=== PATIENT | male | born 1955 | race Caucasian/White ===

== ENCOUNTER 2024-01-13 11:35 | Emergency (ER) | payer MEDICARE, OTHER, SELFPAY ==
[2024-01-13 11:40] VITALS: BP 112/71
[2024-01-13] MEDS: MOTRIN 600 MG PO (13:49)
[2024-01-13] MEDS: VALIUM 5 MG PO (13:50)
--- NOTE | 2024-01-13 14:47 | ED.MUSCINJ ---
HPI-Injury
General
Chief Complaint: Fall
Source: patient
Exam Limitations: none
Time Seen by Provider: 01/13/24 12:53
Nursing documentation reviewed up to this point in time: agreed with
Travel History
Have you had any contact with someone who has COVID-19?: No
Do you have any symptoms of coronavirus? Fever > 100 degrees, chills, cough, shortness of breath, sore throat, loss of taste or smell, muscle aches, or headache?: No
History of Present Illness-Injury
Initial Injury comments:
68-year-old male with no significant past medical history states at 7:30 AM he was walking his dog slipped on ice, his feet went out from under him and he landed flat on his back striking the back of his head on the cement. He states I 'saw stars,'
but there was no loss of consciousness. It knocked the wind out of him. He experienced mid back pain at the time and had to lay there, eventually was able to roll over on the side and got up on all fours where he stayed for a while due to his back
pain. He eventually stood up, felt dizzy and had to hold onto the light post for a few seconds. He was able to ambulate about 50 yards back to his house, still feeling lightheaded, he leaned over on the head of his car and stayed there for a
minute or 2 then was able to get up and ambulate into the house.
Patient denies headache, change in vision, nausea or vomiting. He would not be here for his head injury alone. He does not feel it was significant.
He is mainly here because he has 8/10 mid back pain after his fall. He feels his back and ribs are going into spasm. He took ibuprofen 400 mg at 9 AM and placed ice on his back and the back of his head. His lightheadedness is better.
Denies numbness, tingling or weakness in extremities.
Past History
Past History
ED Past Medical History: None
ED Past Surgical History: None
Social History
Tobacco: Non-smoker
Alcohol: Occasional
Personal:
Living: with family
Employment: Employed
Review of Systems
Review of Systems
Allergies reviewed?: Yes
All Other Systems: ROS reviewed and negative except as documented in HPI and ROS
Constitutional: Denies fever
Respiratory: Denies trouble breathing
Cardiac: Denies chest pain or syncope
ABD/GI: Denies abdominal pain, nausea or vomiting
: Denies dysuria
Musculoskeletal: Denies edema, neck pain or back pain
Neurological: Reports weakness and other (Unable to gaze to the right. Speech is slurred, left-sided facial droop); Denies dizzy, headache or numbness
Phy Exam
General Physical Exam
General Presentation: well appearing and mild distress (due to mid back pain and muscle spasms)
General age: appears stated age
General Skin: dry and cool
General Habitus: normal
General Mental: alert
General Hydration: appears well hydrated
Eye Exam
Eye Exam: PERRL, cornea clear and conjunctiva normal
Cardiovascular Exam
Cardiovascular Exam: regular rate/rhythm
Heart Sounds: normal
Pulmonary Exam
Pulmonary Exam: lungs clear and chest non tender
Gastrointestinal Exam
Gastrointestinal Exam: non tender and soft
Neurological Exam
Neurological Exam: alert, oriented x3, CN II-XII intact, no motor deficits (strength equal throughout) and speech normal
Injury Course
Orders/Labs/Results
Orders:
Orders
01/13/24 13:39
Diazepam [Valium] 5 mg PO NOW STA
Ibuprofen [Motrin] 600 mg PO NOW STA
01/13/24 13:40
Thoracic Spine 3 Views CR [CR Thoracic Spine 3 Views] Urgent
Comment:
Reason For Exam: pain after fall
01/13/24 15:41
CT Head W/o Iv Contrast Urgent
Comment:
Reason For Exam: lightheaded after head injury
MDM/Problems Addressed
Differential Diagnosis Includes:
T spine fracture, back strain, contusion
Concussion, scalp contusion
MDM/Problems Addressed:
68-year-old male with no significant past medical history states at 7:30 AM he was walking his dog slipped on ice, his feet went out from under him and he landed flat on his back striking the back of his head on the cement. He states I 'saw stars,'
but there was no loss of consciousness. It knocked the wind out of him. He experienced mid back pain at the time and had to lay there, eventually was able to roll over on the side and got up on all fours where he stayed for a while due to his back
pain. He eventually stood up, felt dizzy and had to hold onto the light post for a few seconds. He was able to ambulate about 50 yards back to his house, still feeling lightheaded, he leaned over on the head of his car and stayed there for a
minute or 2 then was able to get up and ambulate into the house.
Patient denies headache, change in vision, nausea or vomiting. He would not be here for his head injury alone. He does not feel it was significant.
He is mainly here because he has 8/10 mid back pain after his fall. He feels his back and ribs are going into spasm. He took ibuprofen 400 mg at 9 AM and placed ice on his back and the back of his head. His lightheadedness is better.
Denies numbness, tingling or weakness in extremities.
Loss of conscious, no focal neurological deficits, not anticoagulated, no indication for head CT but patient's son and daughter are nurses and they are in contact with patient's and are insistent on head CT.
Pt OOB and ambulating with steady gait. Movement of spine intact to about 50% Rotation and forward flexion.
T spine xray shows no fracture or other acute abnormality.
No sign of concussion
Head CT neg. Reviewed incidental finding with pt and he will f/u with PCP for MRI
Rx for muscle relaxant sent to his pharmacy
*Critical Care Note
Total Time (30-74mins, 75-104mins- exclusive of procedures): Not Applicable
ED Attending Note
-
Portions of this chart may have been created with voice recognition software.� Occasional wrong word or��sound alike� substitutions may have occurred due to the inherent limitations of voice recognition software.
Discharge Plan
Departure
Patient Disposition: Home (Routine Discharge)
Date of Disposition: 01/13/24
Time of Disposition: 17:16
Patient with high blood pressure during this ER visit?: No
Condition: Good
Discharge Problem:
Head injury, acute, without loss of consciousness, Fall due to ice or snow, Acute bilateral thoracic back pain
Instructions: Back Muscle Strain (DC), Head Injury in Adults (DC), Blunt Chest Trauma (DC)
Prescriptions:
New
cyclobenzaprine 10 mg tablet
10 mg PO TID PRN (Reason: muscle spasm) Qty: 30 0RF
Referrals:
Your, Doctor [Other] - As needed
NONE,* [Family Provider] -
Activity Restrictions/Additional Instructions:
As we discussed, I sent a prescription to your pharmacy for a muscle relaxant Flexeril (cyclobenzaprine) 10 mg to take up to 3 times a day as needed for muscle spasms, back tightness
This medication can make you sleepy and slow the reflexes so do not drive or operate any machinery within 8 hours of taking it.
Your head CT shows no acute abnormality. there is a tiny focus of subtle irregularity which is most likely nothing worrisome but to be sure it is properly evaluated, you should have an MRI. Please contact your doctor to arrange MRI.
See your doctor or return here immediately for vomiting more than once in 1 hour, confusion, or headache that gets worse and worse despite Tylenol or what you normally take for pain.
Interventions
Interventions:
*Risk Screen - Suicide Last Done: 01/13/24 11:43
*General Assessment Last Done: 01/13/24 11:43
*Neglect/Abuse Screening Last Done: 01/13/24 11:43
*Nursing Disposition Last Done: 01/13/24 18:07
ED-Musculoskeletal Assessment Last Done: 01/13/24 13:10
ED- Neurological Assessment Last Done: 01/13/24 13:10
ED-Skin Assessment Last Done: 01/13/24 13:10
Discharge Date and Time
Discharge Date/Time: 01/13/24 18:09
[2024-01-13 17:30] VITALS: BP 139/85
== END 2024-01-13 18:09 | disposition home or self-care (01) ==
LOC: EMR 11:35
PROVIDERS: EMERGENCY PHYSICIAN Emergency Medicine
DX: S09.90XA Unspecified injury of head, initial encounter (principal); M54.6 Pain in thoracic spine; R42 Dizziness and giddiness; R29.810 Facial weakness; M62.830 Muscle spasm of back; W00.0XXA Fall on same level due to ice and snow, initial encounter; Y93.K1 Activity, walking an animal
CPT/HCPCS: 99284; 70450; 72072

== ENCOUNTER 2024-11-01 05:58 | Inpatient (IN) | payer MEDICARE, OTHER, SELFPAY ==
[2024-11-01] VITALS (17 sets, daily range): BP systolic 109–141; BP diastolic 75–85; BMI 27.5
[2024-11-01 03:46] LABS: Glucose - Point of Care 132 mg/dl (70-99)
[2024-11-01] MEDS: NITROSTAT (SUBLINGUAL) 0.4 MG SL ×3 (03:55→04:05)
[2024-11-01] MEDS: LOW STRENGTH ASPIRIN 324 MG PO (03:57)
[2024-11-01] MEDS: NSS 1000 IV ×2 (03:57→14:30)
[2024-11-01] MEDS: HEPARIN 4000 UNITS IV (03:59)
[2024-11-01 04:10] LABS: % Basophils 0.9 % (0-2); % Eosinophils 4.6 % (0-6); % Immature Granulocytes 0.3 % (0-0.5); % Lymphocytes 44.8 % (20.5-51.1); % Monocytes 9.9 % (1.7-9.3); % Neutrophils 39.5 % (42.2-75.2); Absolute Basophils 0.1 10^3/uL (0-0.2); Absolute Eosinophils 0.5 10^3/uL (0-0.7); Absolute Lymphocytes 4.8 10^3/uL (1.2-3.4); Absolute Monocytes 1.1 10^3/uL (0.1-0.6); Absolute Neutrophils 4.2 10^3/uL (1.4-6.5); Hematocrit 45.5 % (39.0-52.0); Hemoglobin 15.3 g/dL (13.0-18.0); Mean Corp Hgb Conc. 33.6 g/dL (33.0-37.0); Mean Corpuscular Hgb 31.2 pg (27.0-31.0); Mean Corpuscular Volume 92.7 fL (80.0-94.0); Mean Platelet Volume 8.6 fL (7.4-10.4); Nucleated Red Blood Cells % 0 % (-); Platelet Count 262 10^3/uL (130-400); Red Blood Cell Count 4.91 10^6/uL (4.70-6.10); Red Cell Dist. Width 12.8 % (11.5-14.5); White Blood Cell Count 10.6 10^3/uL (4.8-10.8)
[2024-11-01] MEDS: NITROGLYCERIN PREMIX 250 IV (04:20)
[2024-11-01 04:21] LABS: INR 0.91; PT 12.6 Sec (11.4-14.6)
[2024-11-01 04:22] LABS: APTT 27.6 Sec (23.4-35.0)
--- NOTE | 2024-11-01 04:24 | EDRN ---
Nitro infusion started and chest pain is currently rated at a 2/10
[2024-11-01 04:33] LABS: ALT (SGPT) 24 U/L (0-50); AST (SGOT) 28 U/L (17-59); Alkaline Phosphatase 99 U/L (38-126); Blood Urea Nitrogen 13 mg/dl (9-20); Carbon Dioxide 25 mmol/L (22-30); Chloride 106 mmol/L (98-107); Glucose 156 mg/dl (70-99); Potassium 3.6 mmol/L (3.5-5.1); Sodium 142 mmol/L (135-145); Total Bilirubin 0.5 mg/dl (0.2-1.3); Total Protein 6.6 g/dl (6.3-8.2); eGFR > 60.00
[2024-11-01 04:41] LABS: Troponin I 0.125 ng/ml
--- NOTE | 2024-11-01 04:45 | EDRN ---
Dr. Mayes bedside. Patient states that he is chest pain free at this time. Patient denies any pressure feeling in his chest. Patient remains at 10mcg/min for nitro infusion.
--- NOTE | 2024-11-01 04:50 | ED.GENMED ---
History of Present Illness
General
Chief Complaint: Chest Pain
Source: patient and spouse
Exam Limitations: none
Time Seen by Provider: 11/01/24 03:54
Nursing documentation reviewed up to this point in time: agreed with
History of Present Illness
History of Present Illness:
This is a 69-year-old gentleman with no significant past medical history, takes no medicines on a daily basis who presents with acute substernal chest pain that radiates to his anterior neck, jaw, aching in nature that began just prior to arrival.
Chest pain accompanied with diaphoresis. He denies shortness of breath, no dizziness nor lightheadedness, denies back pain. No history of similar episodes in the past.
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
He himself has no significant past medical history but father with history of CAD having an MO at 70.
Past History
Past History
ED Past Medical History: Other (Kidney stones)
ED Past Surgical History: None
Social History
Tobacco: Non-smoker
Alcohol: Occasional
Personal:
Living: with family
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
Family History
Family History: CAD (Father having an MO at age 70)
Phy Exam
Physical Exam
Physical Exam:
GENERAL: 69-year-old gentleman appears his stated age, awake and alert, appears in moderate distress, cooperative.
EYE: anicteric
NECK: Supple, nontender, no meningismus, no significant adenopathy. No JVD.
ENT: oral mucosa is moist. No rhinorrhea.
CARDIAC: Regular rate and rhythm. no murmur.
LUNGS: Clear breath sounds bilaterally, no acute respiratory distress, no wheezes/rales/rhonchi
ABDOMEN: Soft, nondistended, without focal tenderness, normoactive BS.
NEUROLOGICAL: Alert and oriented x3, no focal neuro deficits.
SKIN: Warm and dry, normal color, skin intact. No rash.
MUSCULOSKELETAL: No C/C/E. peripheral pulses are full and equal b/l. No palpable tenderness.
PSYCH: Normal and appropriate interaction.
Scores
Heart Score for Chest Pain Patients
STEMI patient?: No
History: Highly Suspicious
ECG: Nonspecific Repolarization
Age: >/= 65 years
Risk Factors: 1 or 2 Risk Factors
Troponin: >/= 3 x Normal Limit
Heart Score for Chest Pain Patients: 8
Heart Score Risk: 72.7 % MACE over next 6 weeks
Course
Orders/Labs/Results
Orders:
Orders
11/01/24 03:43
Electrocardiogram (*1) Urgent
Reason for Study: Chest Pain
11/01/24 03:44
EKG- Treatment ONCE
11/01/24 03:51
CMP [Comprehensive Metabolic Panel] Urgent
Complete Blood Count/With Diff Urgent
Troponin I Urgent
11/01/24 03:53
PT/INR [Prothrombin Time] Urgent
PTT Urgent
11/01/24 03:55
0.9% Sodium Chloride 1000 ml [Nss] 1,000 ml IV BOLUS
Aspirin Chewable [Low Strength Aspirin] 324 mg PO NOW STA
Heparin 4,000 units IV NOW STA
Nitroglycerin Sublingual [Nitrostat (Sublingual)] 0.4 mg SL NOW STA
CR Chest Portable - 1 View Urgent
Comment:
Reason For Exam: cp
Reason Study Needs to be Portable: Patient Unstable
11/01/24 04:03
ECG [Electrocardiogram (*1)] Urgent
Reason for Study: Chest Pain
EKG- Treatment ONCE
11/01/24 04:15
Nitroglycerin 100 mg/250 ml [Nitroglycerin Premix] 100 mg in 250 ml .ROUTE .STK-MED
11/01/24 04:16
Nitroglycerin 100 mg/250 ml [Nitroglycerin Premix] 100 mg in 250 ml IV NOW
Initial dose in mcg/min, then titrate:: 5
Titrate to keep:: SBP < 160 mmHg
Titrate by mcg/min:: 5 mcg/min, may increase by 10 mcg/min if dose > 20 mcg/min
Frequency of titrations (minutes):: every 3-5 minutes
Maximum dose in mcg/min:: 200
Begin to taper infusion when:: Remained at goal for 2hrs
Taper by mcg/min:: 5 mcg/min
Frequency of taper (minutes) if patient maintains goal:: 30
Taper to off?: Yes
If infusion off & no longer maintaining goal:: Contact Provider
11/01/24 04:29
Nitroglycerin 100 mg/250 ml [Nitroglycerin Premix] 100 mg in 250 ml IV NOW
Initial dose in mcg/min, then titrate:: 5
Titrate to keep:: Chest Pain Free
Titrate by mcg/min:: 5 mcg/min, may increase by 10 mcg/min if dose > 20 mcg/min
Frequency of titrations (minutes):: every 3-5 minutes
Maximum dose in mcg/min:: 200
Begin to taper infusion when:: Remained at goal for 2hrs
Taper by mcg/min:: 5 mcg/min
Frequency of taper (minutes) if patient maintains goal:: 30
Taper to off?: Yes
If infusion off & no longer maintaining goal:: Contact Provider
11/01/24 05:[address] Non Medication Order As Directed
Physician Order: PTT 6 hours after initial start of Heparin infusion
Above order entered?: Yes
11/01/24 05:44
Admit/Transfer Patient As Directed
Co-Sign Provider:
Level of Care: Inpatient admission
Assign to:: IVU
Physician / Group: [facility]
Diagnosis: NSTEMI
Reason for Hospitalization: NSTEMI
Expected length of stay greater than two midnights?: Yes
ELOS- Estimated Length of Stay in days: 3
I certify the patient meets the requirements for IP care: Yes
Code Status As Directed
Resuscitation Status: Full Code
PRN Pain Medication Management As Directed
May give lesser potent ordered pain med per pt: Yes
preference::
Protocol:: Medication orders for pain may be administered in a
manner that supports deferring to patient preference
when the pt is:
- Requesting an ordered lesser potent pain medication.
Least to most potent pain medications are defined
as: acetaminophen < NSAID < tramadol < opioids
(morphine, oxycodone, hydromorphone).
- Requesting a lesser dose of the same medication IF
ORDERED.
- Requesting a less intrusive route of administration
if both routes are prescribed by the provider (PO <
IV).
11/01/24 05:45
Heparin 33707 Units/250 ml 25,000 units in 250 ml IV PER PROTOCOL
Weight to be used for heparin protocol in kilograms (kg):: 89.4
Protocol:: Cardiac Tx/Acute Coronary
PTT Goal Range to be used:: PTT 73 to 111 seconds
Order type:: Initial
INITIAL Infusion Dose (UNITS/KG/hr) & then follow protocol:: 15 units/kg/hr
Infusion Dose in UNITS/hr & then follow protocol (UNITS/hr):: 1,350
INFUSION RATE in mL/hr & then follow protocol (mL/hr):: 13.5
PTT less than or equal to 64 seconds:: Increase rate by 200 units/hr (+ 2 mL/hr)
PTT 64.1 to 72.9 seconds:: Increase rate by 100 units/hr (+ 1 mL/hr)
PTT 73 to 111 seconds:: Target Range. No change in rate.
PTT 111.1 to 130.9 seconds:: Decrease rate by 100 units/hr (- 1 mL/hr)
PTT 131 to 199.9 seconds:: HOLD for 1 hr. Then decrease rate by 200 units/hr (- 2 mL/hr)
PTT greater than or equal to 200 seconds:: HOLD for 2 hrs & Notify Provider. Then decrease by 200 units/hr (-
2 mL/hr)
Lab follow-up:: Each change, PTT q6h until 2 consecutive are therapeutic. Then PTT
daily.
11/01/24 Breakfast
NPO
Allow oral meds: Yes
Allow clear liquids: Sips of Clears
11/01/24 06:52
Troponin I Q6H
Acetaminophen [Tylenol] 650 mg PO Q4HPRN PRN
Morphine Sulfate 2 mg IV Q4HPRN PRN
Nitroglycerin 100 mg/250 ml [Nitroglycerin Premix] 100 mg in 250 ml IV PER PROTOCOL
Currently infusing. Continue current dose and titrate:: Yes
Titrate to keep:: Chest Pain Free
Titrate by mcg/min:: 5 mcg/min, may increase by 10 mcg/min if dose > 20 mcg/min
Frequency of titrations (minutes):: every 3-5 minutes
Maximum dose in mcg/min:: 200
Begin to taper infusion when:: Remained at goal for 2hrs
Taper by mcg/min:: 5 mcg/min
Frequency of taper (minutes) if patient maintains goal:: 30
Taper to off?: Yes
If infusion off & no longer maintaining goal:: Contact Provider
Nitroglycerin Sublingual [Nitrostat (Sublingual)] 0.4 mg SL [id number] PRN
Ondansetron Injectable [Zofran] 4 mg IV Q6HPRN PRN
11/01/24 06:52
CARDIOLOGY CONSULT Routine
Consulting Provider: Lamberto Capone
Was physician already notified: Yes
Reason for consult: NSTEMI
Glycohemoglobin (HgbA1c) Routine
Heparin Protocol- PTT Orders As Directed
PTT per Heparin protocol: -Obtain CBC and baseline PTT - if not already collected.
-Obtain PTT 6 hours from start of infusion. Then, every 6 hours until 2 consecutive
PTT's are therapeutic. Then, PTT Daily.
-With each rate change, obtain PTT every 6 hours until 2 consecutive PTT's are
therapeutic. Then, PTT Daily.
Activity As Directed
Activity Level: Bedrest
Bladder Scan As Directed
Follow Bladder Retention/Intermittent Cath Algorithm?: Yes
PRN if no void in __ hours: 6
Frequency: Per Retention Algorithm
If Bladder Scan Result >: 400
then:: Straight cath
EKG with chest pain [ECG as needed] As Directed
ECG as needed for:: Chest Pain
I/O [Intake/ Output] As Directed
Frequency: Per unit guidelines
Notify MD As Directed
Notify physician if: PTT is greater than or equal to 200.
Straight Cath As Directed
Frequency: Per Retention Algorithm
Additional Instructions: straight cath as needed per acute urinary retention algorithm for 24 hrs
Additional Instructions: for bladder scan greater than 400 mL
Vital Signs As Directed
Frequency: Per unit guidelines
Oxygen Therapy [O2 Therapy] [RESP] Routine
Titrate/Wean O2 to maintain O2 sat greater than (%): 94
11/01/24 08:00
Pantoprazole [Protonix IV] 40 mg IV DAILY
11/01/24 11:45
PTT Routine
11/01/24 12:52
Troponin I Q6H
11/01/24 18:52
Troponin I Q6H
11/02/24 06:00
EKG [Electrocardiogram (*1)] IN AM
Reason for Study: Chest Pain
Basic Metabolic Panel IN AM
Cardiovascular Evaluation IN AM
11/02/24 08:00
Aspirin Chewable [Low Strength Aspirin] 81 mg PO DAILY
11/03/24 06:00
Complete Blood Count/No Diff Q2D
Comment: notify provider: Platelet count < 130,000 or decrease by 50% from baseline
11/05/24 06:00
Complete Blood Count/No Diff Q2D
Comment: notify provider: Platelet count < 130,000 or decrease by 50% from baseline
11/07/24 06:00
Complete Blood Count/No Diff Q2D
Comment: notify provider: Platelet count < 130,000 or decrease by 50% from baseline
11/09/24 06:00
Complete Blood Count/No Diff Q2D
Comment: notify provider: Platelet count < 130,000 or decrease by 50% from baseline
11/11/24 06:00
Complete Blood Count/No Diff Q2D
Comment: notify provider: Platelet count < 130,000 or decrease by 50% from baseline
11/13/24 06:00
Complete Blood Count/No Diff Q2D
Comment: notify provider: Platelet count < 130,000 or decrease by 50% from baseline
11/15/24 06:00
Complete Blood Count/No Diff Q2D
Comment: notify provider: Platelet count < 130,000 or decrease by 50% from baseline
11/17/24 06:00
Complete Blood Count/No Diff Q2D
Comment: notify provider: Platelet count < 130,000 or decrease by 50% from baseline
Abnormal Lab Results
11/01/24 11/01/24
03:45 03:51
MCH 31.2 H pg
(27.0-31.0)
Absolute Lymphs (auto) 4.8 H 10^3/uL
(1.2-3.4)
Absolute Monos (auto) 1.1 H 10^3/uL
(0.1-0.6)
Neutrophils % 39.5 L %
(42.2-75.2)
Monocytes % 9.9 H %
(1.7-9.3)
Glucose 156 H mg/dl
(70-99)
Troponin I 0.125 H* ng/ml
POC Glucose 132 H mg/dl
(70-99)
11/01/24 03:51
11/01/24 03:51
Vital Signs
Initial and Last Documented VS:
Initial Vital Signs
Temp Pulse Resp BP Pulse Ox
97.8 F 56 18 141/85 99
11/01/24 03:44 11/01/24 03:44 11/01/24 03:44 11/01/24 03:44 11/01/24 03:44
Last Documented Vital Signs
Temp Pulse Resp BP Pulse Ox
97.8 F 56 18 118/69 99
11/01/24 03:44 11/01/24 03:44 11/01/24 03:44 11/01/24 04:10 11/01/24 03:44
MDM/Problems Addressed
Differential Diagnosis Includes:
Significant concern for ACS/non-STEMI.
Initial EKG with very subtle changes but not definitive for STEMI.
Will give 325 mg chewable aspirin, sublingual nitroglycerin, heparin bolus of 4000 units.
Serial EKGs as needed and clinical changes.
Chronic conditions affecting care: Other (Family history of CAD)
*Radiology
Radiology exam reviewed: preliminary read by ED provider (Chest x-ray is unremarkable.)
*Pulse Oximetry
Patient hypoxic: no
*EKG
Interpreted by ED Provider?: Yes
Interpretation: abnormal
Comparison EKG: no comparison EKG present
Rate: normal
Rhythm: sinus
Humphrey: normal axis
Interval: normal interval
QRS Pattern: normal QRS
Ischemia: non-specific ST changes
*Executive Creative Director Interpretation
Rate: normal
Interpretation: normal
Rhythm: sinus
*Critical Care Note
Total Time (30-74mins, 75-104mins- exclusive of procedures): 60
comment:
Critical care statement: A total of 60 minutes of critical care time was provided for this patient. This includes management of unstable vital signs, evaluation of the patient at bedside, reviewing the patient's pertinent medical records, discussion
with consultants, review of old EKGs and review of pertinent medical records. This time with separate from time utilized to perform the aforementioned documented procedures
Update Note
Update Note:
Patient is chest pain-free after 3 sublingual nitroglycerin, chewable aspirin, heparin bolus and now with heparin drip at 10 mcgs.
Repeat EKG shows improvement in subtle changes.
Initial troponin 0.125.
Case discussed with cardiology, agrees with current treatment. Will add heparin drip, admit to hospitalist service with consult to cardiology. Recommend n.p.o. status for cath in the a.m.
ED Attending Note
-
Portions of this chart may have been created with voice recognition software.� Occasional wrong word or��sound alike� substitutions may have occurred due to the inherent limitations of voice recognition software.
Discharge Plan
Departure
Patient Disposition: Admit
Date of Disposition: 11/01/24
Time of Disposition: 04:58
Admit to: IVU
Admit to doctor: [facility]
Presentation/result/management discussed w/ accepting MD/DO: Hospitalist
Condition: Serious
Discharge Problem:
ACS (acute coronary syndrome), Acute non-ST elevation myocardial infarction (NSTEMI)
Interventions
Interventions:
*Risk Screen - Suicide Last Done: 11/01/24 03:44
*General Assessment Last Done: 11/01/24 03:56
*Neglect/Abuse Screening Last Done: 11/01/24 03:44
ED- Fall Risk Assessment Last Done: 11/01/24 04:05
ED- Cardiac Assessment Last Done: 11/01/24 04:05
[2024-11-01] MEDS: HEPARIN 25000 UNITS/250 ML IV (05:42)
--- NOTE | 2024-11-01 05:52 | HPS.HSE ---
Family Physician
-
Family Physician: * NONE
Chief Complaint
-
Chest Pain
History of Present Illness
Patient is a 69y M with no significant PMH who presents to ED complaining of chest pain that woke him from sleep. Patient states that he felt well last PM. He woke in the middle of the night with chest tightness, SOB and diaphoresis. He felt
nauseated and had some dry haves at home. Patient presented to the ED for further evaluation and treatment. He denies any prior history of similar symptoms. In the ED, patient is somewhat anxious. He complains of mild nausea. He notes that his
chest discomfort is much improved from prior - though he continues to note a mild 'burning' sensation in the chest.
Medical History
Past Medical History
Past Medical History: Reports Other
Additional Past Medical History:
Nephrolithiasis
Past Surgical History: Reports Other
Additional Past Surgical History:
Lithotripsy
Social History
Tobacco: Non-smoker
Alcohol: Occasional
Drug: None
Family History
Family History: Other (Father: CO at age 75. Sister: Cancer)
Allergies / Home Medications
Allergies reflects when Allergies were last updated in [facility].
Home Medications with original date entered in [facility]
Allergy/Medication List:
Allergies
Allergy/AdvReac Type Severity Reaction Status Date / Time
NKA - No Known Allergies Allergy Unknown Unknown Uncoded 11/01/24 03:52
Home Medications
No Meds [No Current Medications] 11/01/24
Review of Systems
-
History Source: Patient
A 12 point ROS was completed and negative except as noted: Yes
Constitutional: Denies Fever or Chills
Respiratory: Reports Trouble Breathing; Denies Cough
Cardiac: Reports Chest Pain and Diaphoresis; Denies Syncope
Abdomen/GI: Reports Nausea and Vomiting; Denies Abdominal Pain or Diarrhea
: Denies Dysuria or Frequency
Musculoskeletal: Denies Joint Pain or Edema
Neurological: Denies Dizzy or Headache
Psych: Reports Anxiety; Denies Depression
Physical Exam
Vital Signs
Vital Signs
Temp Pulse Resp BP Pulse Ox
97.8 F 56 18 118/69 99
11/01/24 03:44 11/01/24 03:44 11/01/24 03:44 11/01/24 04:10 11/01/24 03:44
Physical Exam
General: Other (69y M in no acute distress.)
HEENT: Moist mucous membranes and PERRLA
Respiratory: Clear; No Wheezes, Rales or Rhonchi
Cardiac: S1/S2 and Regular Rhythm; No Murmur
GI: Soft, Non Tender, Non Distended and Normal Bowel Sounds
Musculoskeletal: No Clubbing, No Cyanosis and No Edema
Neuro: AO x 3
Psych: Anxious
Laboratory Results
-
11/01/24 03:51
11/01/24 03:51
Laboratory Results
PT 12.6 Sec (11.4-14.6) 11/01/24 03:53
INR 0.91 11/01/24 03:53
APTT 27.6 Sec (23.4-35.0) 11/01/24 03:53
Total Bilirubin 0.5 mg/dl (0.2-1.3) 11/01/24 03:51
AST 28 U/L (17-59) 11/01/24 03:51
ALT 24 U/L (0-50) 11/01/24 03:51
Alkaline Phosphatase 99 U/L (38-126) 11/01/24 03:51
Troponin I 0.125 ng/ml H* 11/01/24 03:51
Impression/Plan
-
A/P: Patient is a 69y M with no significant PMH who presents to ED complaining of chest pain that woke him from sleep.
NSTEMI
- Admit to IVU.
- IV heparin, NTG, ASA.
- Follow for any new / worsening symptoms.
- Follow serial troponin.
- Cardiology evaluation and probable ischemic evaluation later today.
- Additional recommendations per Cardiology.
No other active or chronic medical issues.
DVT Prophylaxis: On IV heparin
Code Status: Full
--- NOTE | 2024-11-01 07:37 | CON.CAR ---
Addendum entered and electronically signed by Elvira Sena MD 11/01/24 16:41:
I saw and examined the patient.
The Furniture Sales Consultant's note was reviewed and I agree with the note.
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
around 3 AM this morning associated with cold sweats who presented to the emergency room with concern for possible NSTEMI. Initial troponin I was 0.125 which went up to 0.358 on second check. Despite IV heparin drip and low-dose nitroglycerin
after 3 sublingual nitroglycerin in the ED he had improvement in symptoms with persistent 1-2 out of 10 chest discomfort.
Vital signs and lab work reviewed. On exam patient is well-appearing, no acute distress, regular rate, normal S1 and S2, no murmurs, rubs or gallops, lungs are clear to auscultation bilaterally, positive JVD, abdomen is soft, nontender,
nondistended with active bowel sounds, 2+ radial pulse, warm extremities without significant edema
EKG with no acute ischemic changes
Recommendations:
1. Given ongoing chest discomfort, we decided to urgently take him to the heart catheterization lab after discussing risk and benefits of the procedure in significant detail.
2. Further recommendations outlined in Vice President Of News report.
Elvira Sena MD, [facility], [facility]
Original Note:
Consultation
Consultation Request
Date/Time Consultation Performed: 11/01/24
Requesting Provider: Dr. Mayes
Performing Provider: Fatimah Cain PA-C for Dr. Hassan
Reason for Consultation: CP
Medical History
-
Chief Complaint: CP
History of Present Illness:
Patient is a 69 yo M without significant PMH who presents to [facility] with complaints of chest discomfort. 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 He reports then he woke up with significant diaphoresis and
chest tightness and pressure up into his neck. He had never had pain like that before. When he walked out to the car with his he had some dry heaving as well. He reports the pain was relatively persistent. He was given aspirin, sublingual
nitro x 3, and started on IV heparin and IV nitro drips with significant improvement in pressure, although reports it remains mild at this time. He also reports mild headache. EKG sinus bradycardia with first-degree AV block, incomplete right
bundle branch block, and septal ST depression noted, resolved on repeat EKG. Initial troponin 0.125. Cardiology consulted for evaluation. Denies prior cardiac issues. Does report family history of CAD in father in 70s.
PMH:
History of remote kidney stone
Family history of CAD and A-fib
Past Medical History
Past Medical History: None
Social History
Tobacco: Non-Smoker
Alcohol: Occasional
Personal:
Living: With Family
Employment: Employed
Family History
Family History: CAD (Father in 70s)
Allergies / Home Medications
Allergy/AdvReac Type Severity Reaction Status Date / Time
NKA - No Known Allergies Allergy Unknown Unknown Uncoded 11/01/24 03:52
�Medication �Instructions �Recorded �Confirmed �Type
No Meds [No Current Medications] 11/01/24 11/01/24 History
Review of Systems
-
History Source: Patient
All other systems: Negative unless noted
Physical Exam
Vital Signs
Temp Pulse Resp BP Pulse Ox
97.8 F 56 18 118/69 99
11/01/24 03:44 11/01/24 03:44 11/01/24 03:44 11/01/24 04:10 11/01/24 03:44
Lab Results
11/01/24 03:51
11/01/24 03:51
Troponin I 0.125 ng/ml H* 11/01/24 03:51
Physical Exam
General: No Apparent Distress and Comfortable
HEENT: Normocephalic, Anicteric and Moist Mucous Membranes
Respiratory: Clear and Non Labored Respirations
Cardiac: S1/S2 and Regular Rhythm
GI: Soft, Non Tender, Non Distended and Normal Bowel Sounds
Musculoskeletal: No Clubbing, No Cyanosis and No Edema
Skin: Warm and Dry
Neuro: AO x 3
Impression / Plan
-
Primary Plaster Mixer: none
Assessment:
Presentation with CP
NSTEMI
Sinus bradycardia
First-degree AV block
History of remote kidney stone
Family history of CAD and A-fib
ECHO 11/01/24: pending
Plan:
-Patient presents with episode of chest pressure and tightness as well as diaphoresis which woke him from sleep. No prior cardiac history
-Ruling in for NSTEMI with troponin up to 0.3 thus far. Trend to peak
-N.p.o. for cardiac catheterization today. Procedure explained to patient and he is agreeable to proceed
-Urgent echo ordered by me
-Initial EKG sinus bradycardia with first-degree AV block with septal ST depression, resolved by repeat
-Currently with very mild discomfort reported by patient on IV heparin, IV nitro at 10.
-Status post 324 mg aspirin in ER. Start 81 mg daily
-Check CVE. Initiate statin
-Hemoglobin A1c pending
-CXR images reviewed, official read pending
-Further recommendations based on results of cardiac catheterization
-Discussed with ER physician. Discussed with Vice President Of News via TT
Data Reviewed
-
EKG: Tracing Personally Visualized and interpreted
Radiology: Report Reviewed by me
Labs: Labs Reviewed by me and Discussed with Patient
[2024-11-01] MEDS: PROTONIX IV 40 MG IV (07:41)
[2024-11-01] MEDS: NSS (PRESERVATIVE FREE) 10 ML IV (07:41)
--- NOTE | 2024-11-01 07:50 | W.PN.HOSP.TC ---
Today's Communication/Plan
-
Cardiac cath today
Assessment / Plan
Assessment / Plan
Physical exam:
General: Acutely ill
HEENT: Normocephalic, Atraumatic and Moist Mucous Membranes
Respiratory: Clear to Auscultation; Negative Wheezes, Rales or Rhonchi
Cardiac: Regular Rhythm and S1/S2
GI: Soft, Nontender and Nondistended
Musculoskeletal: No Clubbing, No Cyanosis and No Edema
Neuro: Awake, Alert and Oriented
Psych: Calm
Echocardiogram:
Normal left ventricular chamber size, wall thickness. Normal left ventricular
systolic function with regional wall motion abnormalities. Severe hypo- to
akineses of the basal to mid inferolateral wall and basal inferior segment.
Left ventricular ejection fraction is 60% by Johnson's method. Normal diastolic
function.
Normal right ventricular size. Low normal right ventricular systolic function.
Mild to moderate mitral regurgitation.
No prior study for comparison
A/P:
Acute NSTEMI:
Continue heparin drip
Continue nitro drip
Continue aspirin and start atorvastatin 40 mg nightly. Consider beta-blockers depending on coronary anatomy (sinus bradycardia currently).
Seen and interpreted by myself chest x-ray no acute chest pathology
Seen and interpreted by myself EKG 12-lead and shows sinus bradycardia first-degree AV block with septal ST depression and repeat EKG shows improvement but remains sinus bradycardia.
Hemoglobin A1c 5.6
Troponin 0.358--> 0.125
Continue trend cardiac enzymes
Stat echocardiogram
Plan for urgent cardiac cath today
Sinus bradycardia and first-degree AV block:
Cardiac monitoring
History of nephrolithiasis:
Stable from that standpoint
DVT Prophylaxis: On IV heparin
Code Status: Full code
Total Critical Care Time__35___ minutes. I was immediately available to the patient and staff. I personally examined, reviewed labs, diagnostic images/reports, interpretations, treatment plans, discussed patient care with other providers and
family or caregivers (if patient is unable to make decisions), entered orders as appropriate and documented the medical record.
Anticipated Discharge: 24 - 48 hours
Subjective/Interval History
-
Date of Service: November 01, 2024
Patient is still having chest pain, midsternal, intermittent in nature. No shortness of breath.
Objective Data
-
Labs:
Laboratory Results
11/01/24 11/01/24 11/01/24
03:51 03:53 11:45
WBC 10.6
Hgb 15.3
Hct 45.5
Plt Count 262
PT 12.6
INR 0.91
APTT 27.6 Pending
Sodium 142
Potassium 3.6
Chloride 106
Carbon Dioxide 25
BUN 13
Creatinine 1.0
Glucose 156 H
Calcium 9.0
Total Bilirubin 0.5
AST 28
ALT 24
Alkaline Phosphatase 99
Vital Signs:
Vital Signs
Temp Pulse Resp BP Pulse Ox
97.8 F 56 18 118/69 99
11/01/24 03:44 11/01/24 03:44 11/01/24 03:44 11/01/24 04:10 11/01/24 03:44
[2024-11-01 08:25] LABS: Troponin I 0.358 ng/ml
[2024-11-01 08:58] LABS: Glycohemoglobin (HgbA1c) 5.6 % (4.0-5.6)
[2024-11-01 13:07] LABS: ACT-LR - POC 252 Seconds (116-155)
[2024-11-01 13:17] LABS: ACT-LR - POC 281 Seconds (116-155)
[2024-11-01 13:27] LABS: ACT-LR - POC 303 Seconds (116-155)
[2024-11-01] MEDS: KCL 40 MEQ PO (15:11)
--- NOTE | 2024-11-01 16:22 | ITS.CL.CATH ---
Tester Wafer Substrate - Catheterization
Cardiac Catheterization
Procedure Report:
LEFT HEART CATHETERIZATION AND CORONARY INTERVENTION
Date of Procedure: November 01, 2024
Referring: [place] [facility]
PROCEDURES:
1. Left heart catheterization, coronary angiogram.
2. Ultrasound-guided access
3. Successful percutaneous coronary artery intervention of thrombotic 100% proximal to mid left circumflex occlusion into a large caliber OM2 with one 3.0 x 30 mm Medtronic [place] frontier drug-eluting stent, postdilated with a 3.0 x 20 mm NC balloon
at 18 tj distally and 22 tj proximally with an excellent angiographic result and ALESIA-3 flow restored into the distal vessel.
INDICATION: NSTEMI
ACCESS: Right Radial artery, 6Fr sheath under ultrasound-guided
HEMODYNAMICS : (mmHg)
AO (s/d) : 122/78, 98
LV (s/d) : 125/23
LVEDP : 31
CORONARY FINDINGS
DOMINANCE: Right
LEFT MAIN: The left main artery is a large-caliber vessel which gives rise to the left anterior descending artery and the left circumflex artery. There is minimal luminal irregularities.
LEFT ANTERIOR DESCENDING: The left anterior descending artery is a medium to large caliber vessel which gives rise to 3 small to medium caliber diagonal branches as it courses through the anterior interventricular groove and wraps around the apex.
There are multiple serial stenosis in the mid to distal LAD up to 80%. There is moderate diffuse atherosclerotic plaque in the distal to apical LAD with distal LAD a possible bypass target. D1 is a very small caliber vessel with mild diffuse
atherosclerotic plaque. D2 is a small caliber vessel with 50% ostial stenosis. D3 is a small to medium caliber vessel with 60 to 70% ostial stenosis and otherwise mild diffuse atherosclerotic plaque.
CIRCUMFLEX: The left circumflex artery is a medium caliber vessel which gives rise to 2 major obtuse marginal branch, a small caliber OM1 and 80 large caliber OM 2 with a mid to distal left circumflex 100% chronic total occlusion which is well
collateralized from the right side. There is 100% thrombotic acute occlusion in the proximal to mid left circumflex into the large caliber OM 2 which was the culprit lesion for presenting acute coronary syndrome with intervention as noted below.
RIGHT CORONARY ARTERY: The right coronary artery is a medium caliber, dominant vessel which gives rise to the right posterior descending artery and the right posterolateral system. There is a short segment of 100% chronic total occlusion in the mid
RCA with bridging collaterals collateralizing mid to distal RCA. There are robust right to left collaterals into the left circumflex system. The RPDA is a good bypass target.
VENTRICULOGRAPHY: On a single-plane KIRK projection, there is mid to basal inferior and inferolateral hypokinesis with overall LVEF of 50%.
CORONARY INTERVENTION: Given presence of 80 robust collaterals from the RCA to the left circumflex artery, initially we wondered if the occlusion in the left circumflex artery was a true chronic total occlusion however given patient's ongoing -01/09
chest discomfort while on the table, after discussing the case and reviewing the images with my senior interventional colleague, Dr. Jhon Meza and CT surgeon, Dr. Deni Thornton, we decided to proceed with possible percutaneous coronary artery
intervention to the mid left circumflex occlusion. The left coronary artery was selectively engaged using a 6 [place] EBU 3.75 guide catheter. Additional heparin was given to maintain therapeutic ACT throughout the case. We initially tried to
navigate the lesion using a 190 cm 0.014' run-through coronary wire and with little difficulty we were able to navigate across the lesion into the distal OM 2. We predilated the lesion using a 2.5 x 15 mm semicompliant balloon at 16 tj with good
expansion. We subsequently stented the lesion with a 3.0 x 30 mm Medtronic [place] frontier drug-eluting stent at 14 tj and postdilated the stent with a 3.0 x 20 mm NC balloon at 18 tj distally and 22 tj proximally with an excellent angiographic
result and ALESIA-3 flow restored into the distal vessel. Patient was chest pain free at the end of the case. He was loaded with 180 mg of Brilinta at the end of the case. No acute complications were noted.
SEDATION: 95 minutes of procedural sedation was utilized. An independent medical esthetician was present to assist with and help manage the patient's level of consciousness and physiologic status.
RADIATION SUMMARY: Fluoro Time (min): 15.4, Dose (mGy): 870.05, DAP (Gy.cm2) : 56.91
Closure Device: Vascular band over right radial artery, 10 cc of air.
CONCLUSIONS
1. Successful percutaneous coronary artery intervention of thrombotic 100% proximal to mid left circumflex occlusion into a large caliber OM2 with one 3.0 x 30 mm Medtronic [place] frontier drug-eluting stent, postdilated with a 3.0 x 20 mm NC balloon
at 18 tj distally and 22 tj proximally with an excellent angiographic result and ALESIA-3 flow restored into the distal vessel.
2. Significant residual coronary artery disease in the right coronary artery, mid to distal left circumflex artery and LAD involving the diagonals.
3. Elevated LVEDP at 32 mmHg
RECOMMENDATIONS
1. Uninterrupted dual antiplatelet therapy with daily baby aspirin and Brilinta 90 mg twice daily along with high intensity statin and beta-chris for at least 4 to 6 weeks.
2. Heart team discussion in regards to timing of possible coronary artery bypass grafting to address significant LAD and RCA stenosis.
3. Aggressive management of cardiovascular risk factors.
4. Full echocardiogram to assess biventricular function and rule out any significant valvular abnormalities.
5. Eventual referral for outpatient cardiac rehab.
Elvira Sena MD, FACC, [facility]
--- NOTE | 2024-11-01 17:02 | CM ---
spoke to pt in room, he is prev indep, lives with his in a 2 story home with 2 steps to enter. he denies any dc planning needs or dme's. plan is for dc to home when medically stable.
[2024-11-01] MEDS: LIPITOR 80 MG PO (17:20)
[2024-11-01 17:39] LABS: HDL Cholesterol 49 mg/dl; LDL Cholesterol, Calculated 152 mg/dl; Total Cholesterol 226 mg/dl (50-199); Triglyceride 127 mg/dl (10-149); Very Low Density Lipoprotein 25 mg/dl (0-30)
--- NOTE | 2024-11-01 18:57 | PTCARENOTE ---
Pt received post cath at 1425. Right radial site with TR band intact, no bleeding or hematoma. Denies any chest pain or sob. Room air sat 98%. SR, rate in the 60's to 70's.
[2024-11-01] MEDS: BRILINTA 90 MG PO (19:43)
[2024-11-02] VITALS (7 sets, daily range): BP systolic 102–123; BP diastolic 67–99; BMI 27.4
--- NOTE | 2024-11-02 00:42 | PTCARENOTE ---
Right radial site azra DDI. Pt reminded of limb restrictions. Troponin trending down.
[2024-11-02 05:43] LABS: Hematocrit 40.6 % (39.0-52.0); Hemoglobin 14.4 g/dL (13.0-18.0); Mean Corp Hgb Conc. 35.5 g/dL (33.0-37.0); Mean Corpuscular Hgb 32.1 pg (27.0-31.0); Mean Corpuscular Volume 90.6 fL (80.0-94.0); Mean Platelet Volume 9.1 fL (7.4-10.4); Platelet Count 237 10^3/uL (130-400); Red Blood Cell Count 4.48 10^6/uL (4.70-6.10)
[2024-11-02 06:10] LABS: Blood Urea Nitrogen 15 mg/dl (9-20); Calcium 8.9 mg/dl (8.4-10.2); Carbon Dioxide 26 mmol/L (22-30); Chloride 106 mmol/L (98-107); Estimated Creatinine Clearance 76 ml/min; Glucose 119 mg/dl (70-99); HDL Cholesterol 48 mg/dl; LDL Cholesterol, Calculated 150 mg/dl; Potassium 4.2 mmol/L (3.5-5.1); Sodium 141 mmol/L (135-145); Total Cholesterol 217 mg/dl (50-199); Triglyceride 98 mg/dl (10-149); Very Low Density Lipoprotein 19 mg/dl (0-30); eGFR > 60.00
--- NOTE | 2024-11-02 06:40 | PTCARENOTE ---
Pt with no c/o cp during the night. Was c/o constipation but was able to pass moderate size stool in am. Sinus on telemetry.
--- NOTE | 2024-11-02 07:48 | W.PN.CARDCBS ---
Addendum entered and electronically signed by Elvira Sena MD 11/02/24 21:19:
Late note entry
I saw and examined the patient around 2-2:30PM
The Presser And Shaper Knitted Goods's note was reviewed and I agree with the note.
Comment: Overall patient remained stable overnight with no acute complaints. No further CP.
Vital signs and lab work reviewed. On exam patient A+Ox3, NAD, RR, Normal S1 and S2, no m/r/g, no JVD, Lung CTAB, right radial access site dresses with dressing c/d/i, no hematoma or bruit, warm ext, no LE edema.
tele: short run of NSVT. ECG stable with NSR, no ischemic changes.
Recommendations:
1. for high risk NSTEMI--> DAPT with ASA and Brilinta, high intensity statin, BB now that HRs 60-70s with tele with short run of NSVT.
2. IF BP allows will attempt low dose ARB tomorrow given LVEF by V-gram appeared to be mildly reduced with WMA.
3. Aggresive management of CV risk factors
4. Discussed with CT surgery (Dr. Alfonzo Thornton)--will plan for pt to follow up in 4-5 weeks post NC for consideration for CABG with bypasses to LAD, Diag, RPDA for complete revasc.
5. Anticipate DC home tomorrow is no acute issues
6. Outpt cardiac rehab and cardiology follow up.
Elvira Sena MD, [facility], [facility]
Original Note:
Today's Communication / Plan
-
Continue aspirin, Brilinta, Lipitor
Coreg added.
Consider addition of RAJ/ARB in a.m. if blood pressure tolerates
Check mag
Likely outpatient CT surgical evaluation for CABG
Cardiac rehab
Possible discharge in a.m.
Impression / Plan
-
Primary Languages And Literature Instructor: none
Assessment:
Presentation with CP
NSTEMI s/p circ PCI 11/01/24
Residual RCA, mid to distal left circumflex, LAD involving diagonal disease
Sinus bradycardia
First-degree AV block
HLD
History of remote kidney stone
Family history of CAD and A-fib
ECHO 11/01/24: EF 60%, severe hypo to akinesis of basal to mid inferior lateral wall and basal inferior segment, mild to moderate MR
Plan:
-Patient presented with chest pain and ruled in for NSTEMI with peak troponin of 145 and trending down.
-Status post cardiac catheterization 11/01/2024 resulting in circumflex PCI. Patient noted to have residual RCA, mid to distal left circumflex, LAD involving diagonal disease with plan for medical management at this time. CT surgery to review cath
films, and may require inpatient versus outpatient CT surgical evaluation for eventual CABG
-No chest pain or discomfort overnight
-Right wrist site clean dry and intact
-Continue aspirin, Brilinta. Case management to check cost
-Echocardiogram with preserved EF, however by V gram at time of cath, EF was noted to be mildly reduced.
-Stopped Norvasc. Start Coreg and uptitrate as able. Would consider addition of RAJ versus ARB in a.m. if blood pressure tolerates
-Also noted to have several brief up to 5 beat runs of NSVT overnight. Potassium stable. Check magnesium
-LDL 150. Initiated on high intensity lipid-lowering therapy
-Hemoglobin A1c 5.6%
-Cardiac rehab
-Discussed with CT surgical team
Progress Note - Languages And Literature Instructor
Subjective
Date of Service: November 02, 2024
No issues overnight
Objective
Labs:
11/02/24 05:23
11/02/24 05:23
Labs
Hgb 14.4 g/dL (13.0-18.0) 11/02/24 05:23
Hct 40.6 % (39.0-52.0) 11/02/24 05:23
Plt Count 237 10^3/uL (130-400) 11/02/24 05:23
PT 12.6 Sec (11.4-14.6) 11/01/24 03:53
INR 0.91 11/01/24 03:53
APTT Cancelled 11/01/24 11:45
Sodium 141 mmol/L (135-145) 11/02/24 05:23
Potassium 4.2 mmol/L (3.5-5.1) 11/02/24 05:23
BUN 15 mg/dl (9-20) 11/02/24 05:23
Creatinine 1.0 mg/dL (0.7-1.3) 11/02/24 05:23
Glucose 119 mg/dl (70-99) H 11/02/24 05:23
Troponins
11/01/24 11/01/24 11/01/24
03:51 07:43 16:01
Troponin I 0.125 H* 0.358 H* D 145.000 H*
11/01/24 11/01/24
18:52 22:32
Troponin I Cancelled 98.500 H* D
Vital Signs and I&O:
Vital Signs
Temp Pulse Resp BP Pulse Ox
99.2 F 77 20 106/69 95
11/02/24 05:12 11/02/24 05:07 11/02/24 05:12 11/02/24 05:07 11/02/24 05:12
Vital Signs
Temp Pulse Resp BP Pulse Ox
99.2 F 77 20 106/69 95
11/02/24 05:12 11/02/24 05:07 11/02/24 05:12 11/02/24 05:07 11/02/24 05:12
Physical Exam
Physical Exam
GEN: No distress, awake, alert, oriented x3
HEENT: supple, anicteric, mmm, EOMI
LUNGS: CTA bilaterally, no wheezes/rales
CV: Reg, S1/S2, no murmur
ABD: soft, BS+, NT/ND
EXT: No cyanosis, clubbing, edema
NEURO: Gross non-focal
SKIN: Warm, pink, dry. No rash. Right wrist site with dressing clean dry and intact
--- NOTE | 2024-11-02 08:15 | PTCARENOTE ---
Assumed care of pt from prev nsg shift; Pt AAOx3 w/no c/o CP or SOB; Pt's VS stable w/HR in the 70's & BP 123/73. Pt is SR on telemetry monitoring. Pt w/R radial site w/dressing C/D/I & no signs or symptoms of bleeding or hematoma. Discussed new
medications w/pt & provided CT Surgery book & med info sheet to pt for review. Pt w/call callahan within reach & plan of care ongoing.
--- NOTE | 2024-11-02 08:47 | W.PN.HOSP.TC ---
Today's Communication/Plan
-
DAPT and anti-ischemic regimen
Assessment / Plan
Assessment / Plan
Physical exam:
General: Acutely ill
HEENT: Normocephalic, Atraumatic and Moist Mucous Membranes
Respiratory: Clear to Auscultation; Negative Wheezes, Rales or Rhonchi
Cardiac: Regular Rhythm and S1/S2
GI: Soft, Nontender and Nondistended
Musculoskeletal: No Clubbing, No Cyanosis and No Edema
Neuro: Awake, Alert and Oriented
Psych: Calm
Echocardiogram:
Normal left ventricular chamber size, wall thickness. Normal left ventricular
systolic function with regional wall motion abnormalities. Severe hypo- to
akineses of the basal to mid inferolateral wall and basal inferior segment.
Left ventricular ejection fraction is 60% by Johnson's method. Normal diastolic
function.
Normal right ventricular size. Low normal right ventricular systolic function.
Mild to moderate mitral regurgitation.
No prior study for comparison
A/P:
Acute NSTEMI:
Reviewed cardiac catheterization
Continue aspirin and Brilinta
Started on carvedilol 3.125 mg twice a day
Continue atorvastatin 80 mg p.o. nightly
Consideration for CT surgery whether inpatient or outpatient will defer to cardiology
Sinus bradycardia and first-degree AV block:
Stable
History of nephrolithiasis:
Stable from that standpoint
DVT Prophylaxis: SCDs
Code Status: Full code
Total time spent on today's encounter was 52 minutes which included time spent in counseling the patient/family regarding diagnosis and treatment plan as listed above, goals of care, and symptom management. Case was discussed with nursing staff,
specialists, and care coordinators/case management. All labs and imaging personally reviewed by me. Remainder the time spent in detailed review of previous records, lab data, imaging, and other medical provider documentation.
Anticipated Discharge: 24 - 48 hours
Subjective/Interval History
-
Date of Service: November 02, 2024
Patient denies chest pain or shortness of breath today
Objective Data
-
Labs:
Laboratory Results
11/02/24
05:23
WBC 17.0 H
Hgb 14.4
Hct 40.6
Plt Count 237
Sodium 141
Potassium 4.2
Chloride 106
Carbon Dioxide 26
BUN 15
Creatinine 1.0
Glucose 119 H
Calcium 8.9
Vital Signs:
Vital Signs
Temp Pulse Resp BP Pulse Ox
99.2 F 75 20 106/69 95
11/02/24 05:12 11/02/24 08:15 11/02/24 05:12 11/02/24 05:07 11/02/24 05:12
[2024-11-02] MEDS: COREG 3.125 MG PO ×2 (09:29→19:59)
[2024-11-02] MEDS: BRILINTA 90 MG PO ×2 (09:29→19:57)
[2024-11-02] MEDS: PROTONIX IV 40 MG IV (09:29)
[2024-11-02] MEDS: LOW STRENGTH ASPIRIN 81 MG PO (09:29)
[2024-11-02] MEDS: NSS (PRESERVATIVE FREE) 10 ML IV (09:29)
[2024-11-02] MEDS: FLUSH (NSS) 2 FLUSH IV (09:30)
--- NOTE | 2024-11-02 13:25 | CM ---
Priced Brilinta thru patient's insurance, . For a 1 mo supply, estimated cost of Brilinta would be $342. Pt. has to meet his deductible. Once deductible is met, co pay will go down 1/2 of the full cost, approx. $170.
[employer] was unable to share what patient's deductible is 'due to HIPAA'.
TT to [facility] to update.
[2024-11-02] MEDS: LIPITOR 80 MG PO (17:27)
--- NOTE | 2024-11-03 00:06 | PTCARENOTE ---
Patient remains NSR on the building estimator, remains on room air; Patient offers no complaints at this time; Right radial puncture site open to air, no ecchymosis noted, no hematoma noted; Patient denies chest pain, N/V, shortness of breath,
lightheadedness and/or dyspnea at this time; Patient denies numbness and/or tingling to all extremities; Call callahan within reach; Plan of care ongoing
[2024-11-03 03:13] VITALS: BP 106/71
[2024-11-03 03:42] LABS: Hematocrit 40.5 % (39.0-52.0); Hemoglobin 14.2 g/dL (13.0-18.0); Mean Corp Hgb Conc. 35.1 g/dL (33.0-37.0); Mean Corpuscular Hgb 31.7 pg (27.0-31.0); Mean Corpuscular Volume 90.4 fL (80.0-94.0); Platelet Count 206 10^3/uL (130-400); Red Blood Cell Count 4.48 10^6/uL (4.70-6.10); Red Cell Dist. Width 12.6 % (11.5-14.5); White Blood Cell Count 14.4 10^3/uL (4.8-10.8)
[2024-11-03 04:05] LABS: Blood Urea Nitrogen 19 mg/dl (9-20); Calcium 8.9 mg/dl (8.4-10.2); Carbon Dioxide 26 mmol/L (22-30); Chloride 103 mmol/L (98-107); Estimated Creatinine Clearance 76 ml/min; Glucose 111 mg/dl (70-99); Potassium 4.1 mmol/L (3.5-5.1); Sodium 138 mmol/L (135-145); eGFR > 60.00
[2024-11-03 07:29] VITALS: BP 114/77
[2024-11-03] MEDS: LOW STRENGTH ASPIRIN 81 MG PO (07:35)
[2024-11-03] MEDS: BRILINTA 90 MG PO (07:35)
[2024-11-03] MEDS: COREG 3.125 MG PO (07:35)
--- NOTE | 2024-11-03 08:51 | W.PN.CARDCBS ---
Addendum entered and electronically signed by Marcell James MD 11/03/24 09:12:
I saw and examined the patient.
The MARKETING ADMINISTRATOR or PA's note was reviewed and I agree with the note.
Comment: General: Well developed, well nourished in NAD.
Neck: Supple, no JVD, HJR, carotids +2 B/L, no bruits bilaterally.
Heart: Non displaced PMI, RRR, no murmurs, No S3, S4, no rubs.
Lungs: Clear to auscultation bilaterally, no wheeze, rhonchi, rubs bilaterally,
normal expiratory phase.
Extremities: No clubbing, cyanosis or edema bilaterally.
Neuro: Grossly nonfocal, awake, alert and oriented x3.
Stable cardiology status for discharge. Follow-up arranged.
Original Note:
Today's Communication / Plan
-
continue asa. brilinta for 1 month then likely transition to plavix
OP CT surgical follow up for likely CABG
lipitor 80mg QPM
coreg 3.125mg BID
OP cardiac follow up
ok for DC today
Impression / Plan
-
Primary Slasher Tender: none
Assessment:
Presentation with CP
NSTEMI s/p circ PCI 11/01/24
Residual RCA, mid to distal left circumflex, LAD involving diagonal disease
Sinus bradycardia
First-degree AV block
HLD
History of remote kidney stone
Family history of CAD and A-fib
ECHO 11/01/24: EF 60%, severe hypo to akinesis of basal to mid inferior lateral wall and basal inferior segment, mild to moderate MR
Plan:
-Patient presented with chest pain and ruled in for NSTEMI with peak troponin of 145 and trending down.
-Status post cardiac catheterization 11/01/2024 resulting in circumflex PCI. Patient noted to have residual RCA, mid to distal left circumflex, LAD involving diagonal disease with plan for medical management at this time. CT surgery to review cath
films, and plan for eventual CABG. scheduled for CT surgical follow up
-No chest pain or discomfort overnight
-Right wrist site remains clean dry and intact
-Continue aspirin, Brilinta for 1 month, then likely transition to plavix due to cost to patient and as will likely be CABG
-Echocardiogram with preserved EF, however by V gram at time of cath, EF was noted to be mildly reduced.
-Stopped Norvasc. New to coreg 3.125mg BID. Would consider addition of RAJ versus ARB as OP as BP tolerates
-no further NSVT noted on tele overnight
-LDL 150. Initiated on high intensity lipid-lowering therapy
-Hemoglobin A1c 5.6%
-Cardiac rehab aware of patient
-ok for DC to home today from cardiac standpoint
-OP cardiac follow up arranged
-d/w patient's son Bill (pharmacist) via telephone and updated
Progress Note - Slasher Tender
Subjective
Date of Service: November 03, 2024
No issues overnight
Objective
Labs:
11/03/24 03:18
11/03/24 03:18
Labs
Hgb 14.2 g/dL (13.0-18.0) 11/03/24 03:18
Hct 40.5 % (39.0-52.0) 11/03/24 03:18
Plt Count 206 10^3/uL (130-400) 11/03/24 03:18
PT 12.6 Sec (11.4-14.6) 11/01/24 03:53
INR 0.91 11/01/24 03:53
APTT Cancelled 11/01/24 11:45
Sodium 138 mmol/L (135-145) 11/03/24 03:18
Potassium 4.1 mmol/L (3.5-5.1) 11/03/24 03:18
BUN 19 mg/dl (9-20) 11/03/24 03:18
Creatinine 1.0 mg/dL (0.7-1.3) 11/03/24 03:18
Glucose 111 mg/dl (70-99) H 11/03/24 03:18
Troponins
11/01/24 11/01/24 11/01/24
03:51 07:43 16:01
Troponin I 0.125 H* 0.358 H* D 145.000 H*
11/01/24 11/01/24
18:52 22:32
Troponin I Cancelled 98.500 H* D
Vital Signs and I&O:
Vital Signs
Temp Pulse Resp BP Pulse Ox
99 F 74 20 114/77 96
11/03/24 07:28 11/03/24 08:00 11/03/24 07:28 11/03/24 07:29 11/03/24 07:29
Vital Signs
Temp Pulse Resp BP Pulse Ox
99 F 74 20 114/77 96
11/03/24 07:28 11/03/24 08:00 11/03/24 07:28 11/03/24 07:29 11/03/24 07:29
Intake & Output
11/01/24 11/02/24 11/03/24 11/04/24
07:59 07:59 07:59 07:59
Intake Total 720 / 720
Balance 720 / 720
Physical Exam
Physical Exam
GEN: No distress, awake, alert, oriented x3
HEENT: supple, anicteric, mmm, EOMI
LUNGS: CTA bilaterally, no wheezes/rales
CV: Reg, S1/S2, no murmur
ABD: soft, BS+, NT/ND
EXT: No cyanosis, clubbing, edema
NEURO: Gross non-focal
SKIN: Warm, pink, dry. No rash. Right wrist site clean dry and intact
--- NOTE | 2024-11-03 09:09 | W.PN.HOSP.TC ---
Today's Communication/Plan
-
Discharge planning today
Assessment / Plan
Assessment / Plan
Physical exam:
General: No acute distress
HEENT: Normocephalic, Atraumatic and Moist Mucous Membranes
Respiratory: Clear to Auscultation; Negative Wheezes, Rales or Rhonchi
Cardiac: Regular Rhythm and S1/S2
GI: Soft, Nontender and Nondistended
Musculoskeletal: No Clubbing, No Cyanosis and No Edema
Neuro: Awake, Alert and Oriented
Psych: Calm
Echocardiogram:
Normal left ventricular chamber size, wall thickness. Normal left ventricular
systolic function with regional wall motion abnormalities. Severe hypo- to
akineses of the basal to mid inferolateral wall and basal inferior segment.
Left ventricular ejection fraction is 60% by Johnson's method. Normal diastolic
function.
Normal right ventricular size. Low normal right ventricular systolic function.
Mild to moderate mitral regurgitation.
No prior study for comparison
A/P:
Acute NSTEMI:
Reviewed cardiac catheterization
Continue aspirin and Brilinta
Started on carvedilol 3.125 mg twice a day
Continue atorvastatin 80 mg p.o. nightly
Consideration for CT surgery as outpatient per cardiology
Cardiology cleared her for discharge today
Leukocytosis:
Reactive
Sinus bradycardia and first-degree AV block:
Resolved
Tolerating beta-chris
History of nephrolithiasis:
Stable from that standpoint
DVT Prophylaxis: SCDs
Code Status: Full code
Anticipated Discharge: Today
Subjective/Interval History
-
Date of Service: November 03, 2024
No chest pain or shortness of breath today.
Objective Data
-
Labs:
Laboratory Results
11/03/24
03:18
WBC 14.4 H
Hgb 14.2
Hct 40.5
Plt Count 206
Sodium 138
Potassium 4.1
Chloride 103
Carbon Dioxide 26
BUN 19
Creatinine 1.0
Glucose 111 H
Calcium 8.9
Vital Signs:
Vital Signs
Temp Pulse Resp BP Pulse Ox
99 F 74 20 114/77 98
11/03/24 07:28 11/03/24 08:00 11/03/24 07:28 11/03/24 07:29 11/03/24 08:00
I&O
11/02/24 11/03/24 11/04/24
06:59 06:59 06:59
Intake Total 720 / 720
Balance 720 / 720
[2024-11-03] MEDS: NSS (PRESERVATIVE FREE) IV (10:22)
[2024-11-03] MEDS: PROTONIX IV IV (10:22)
[2024-11-03 11:11] VITALS: BP 112/71
--- NOTE | 2024-11-03 13:47 | CM ---
CM following for DC planning needs.
Met w/ patient at bedside. Pt. feels well and is prepared for DC today.
We reviewed estimated cost of Brilinta and free 30 d coupon.
No other needs noted.
Plan is for home, no needs.
--- NOTE | 2024-11-03 14:24 | W.DCSUMMARY ---
Discharge Summary
Discharge Data
Date of Admission: 11/01/24
Date of Discharge: 11/03/24
-
Pending Results: No
Hospital Course
Patient is 69 years old male with no significant past medical but has not seek any medical advice prior to his presentation and came into the hospital chest pain and found to be an acute non-ST DC. Patient was treated with acute coronary syndrome
protocol. Cardiology consulted. He was taken to cardiac catheterization. He was found to have multivessel coronary artery disease. Patient had cardiac stents. Cardiology recommended evaluation by cardiothoracic surgery as outpatient for
possible CABG eventually. Patient was placed on optimal cardiac regimen. Cardiology cleared him for discharge. Patient will be discharged in stable condition today.
Discharge duration: 35 minutes
Discharge Plan
-
Patient Disposition: Home (Routine Discharge)
Discharge Diagnosis/Procedures: Non-ST myocardial infarction, Angioplasty with stent to left circumflex artery
Diet: Low Cholesterol
Activity: No strenuous activity
Driving Restrictions: No driving for 24 hours
Blood Work: Please PCP to order CBC, BMP within 1 week
Other Services: Cardiac Rehab
Stand Alone Forms: DC Instructions- Cath/EP Lab
Referrals:
Primary care, provider [Other] (See less than 1 week)
Rut Frederick PA-C [Specified Professional Personl] - 11/18/24 10:00 am
Deni Thornton MD [Active] - 12/06/24 8:30 am
Prescriptions:
New
Brilinta 90 mg Tablet
90 mg PO BID Qty: 60 0RF
atorvastatin 80 mg Tablet
80 mg PO QPM 30 Days Qty: 30 0RF
carvedilol 3.125 mg Tablet
3.125 mg PO BID 30 Days Qty: 60 0RF
aspirin 81 mg Tablet,Chewable
81 mg PO DAILY 30 Days Qty: 30 0RF
nitroglycerin 0.4 mg Tablet, Sublingual
0.4 mg sublingual [id number] PRN (Reason: Chest Pain) Qty: 90 0RF
Discontinued
ibuprofen 200 mg Tablet
200 mg PO Q6H PRN (Reason: mild pain)
Discharge Orders:
Discharge Patient (As Directed); Ordered 11/03/24
Ordered By: Woody Jarvis
Care Plan Goals
Care Plan Goals:
Problem: Readiness for enhanced knowledge related to diagnosis and treatment plan
Goal: Understand your diagnosis and treatment plan needs, including medications if applicable.
Instructions: Know your diagnosis, underlying causes and treatment plan options, including medications if applicable. Consult with your health care team to learn about your diagnosis and treatment plan, including medications if applicable.
Discharge Date and Time
Discharge Date/Time: 11/03/24 15:46
Print Language: LIBYAN
--- NOTE | 2024-11-03 15:30 | PTCARENOTE ---
Pt received this am oob ad emily. Denies any chest pain or sob. 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 Pt ambulated in the hallways without difficulty. Pt discharged to home with his . Discharge instructions given and reviewed with pt,
his and son with good understanding.
== END 2024-11-03 15:46 | disposition home or self-care (01) | DRG 322 ==
LOC: IVU 05:58
PROVIDERS: ADMITTING PHYSICIAN Hospitalist; ATTENDING PHYSICIAN Hospitalist; EMERGENCY PHYSICIAN Emergency Medicine; OTHER PHYSICIAN Internal Medicine Interventional Cardiology
PROC: B2111ZZ Fluoroscopy of Multiple Coronary Arteries using Low Osmolar Contrast (ICD-10-PCS; 2024-11-01)
PROC: B2151ZZ Fluoroscopy of Left Heart using Low Osmolar Contrast (ICD-10-PCS; 2024-11-01)
PROC: 4A023N7 Measurement of Cardiac Sampling and Pressure, Left Heart, Percutaneous Approach (ICD-10-PCS; 2024-11-01)
PROC: 027034Z Dilation of Coronary Artery, One Artery with Drug-eluting Intraluminal Device, Percutaneous Approach (ICD-10-PCS; 2024-11-01)
DX: I21.4 Non-ST elevation (NSTEMI) myocardial infarction (principal); I25.10 Atherosclerotic heart disease of native coronary artery without angina pectoris; I44.0 Atrioventricular block, first degree; R00.1 Bradycardia, unspecified; E78.5 Hyperlipidemia, unspecified; Z79.82 Long term (current) use of aspirin; Z82.49 Family history of ischemic heart disease and other diseases of the circulatory system; Z87.442 Personal history of urinary calculi
CPT/HCPCS: 71045; 80048; 80053; 80061; 82962; 83036; 83735; 84484; 85025; 85027; 85347; 85610; 85730; 93005; 93306; 93458; 96361; 96374; 96375; 96376; 99152; 99153; 99291; C9600; Q9967

== ENCOUNTER 2024-12-26 19:36 | Inpatient (IN) | payer MEDICARE, OTHER, SELFPAY ==
[2024-12-26] VITALS (16 sets, daily range): BP systolic 112–136; BP diastolic 62–72; BMI 27.2
--- NOTE | 2024-12-26 07:52 | ED.GENMED ---
History of Present Illness
<Paloma Enamorado PROCESS PLANT OPERATOR - Last Filed: 12/28/24 15:34>
General
Chief Complaint: Abdominal Symptoms
Source: patient and spouse
Exam Limitations: none
Time Seen by Provider: 12/26/24 07:34
Nursing documentation reviewed up to this point in time: agreed with
History of Present Illness
History of Present Illness:
69 yo male 10 days post triple bypass at [facility] presents stating all was healing well, feeling well, had diarrhea when he left the hospital 5 days ago, had more formed stool 4 days ago, then no stool x 2 days, and finally large 'pasty' stool
yesterday. managing his BM's with Dolcolax and Miralax. He is here for upper back pain 'like my skin is irritated,' and lower abdominal pain. He vomited once 2 a.m today. Feels a 'little' nauseous now. Denies SOB or CP other than his usual healing
chest wall discomfort which is improving. Denies F/C.
Past History
<Paloma Enamorado, PROCESS PLANT OPERATOR - Last Filed: 12/28/24 15:34>
Past History
ED Past Medical History: Other (Kidney stones)
ED Past Surgical History: Cardiac (Triple cardiac bypass at [facility] 12/16/2024)
Social History
Tobacco: Non-smoker
Alcohol: Occasional
Personal:
Living: with family
Employment: Employed ([employer])
Family History
Family History: CAD (Father having an [place] at age 70)
Review of Systems
<Paloma Enamorado, PROCESS PLANT OPERATOR - Last Filed: 12/28/24 15:34>
Review of Systems
Allergies reviewed?: Yes
All Other Systems: ROS reviewed and negative except as documented in HPI and ROS
Constitutional: Denies fever or chills
EENT: Denies sore throat
Respiratory: Denies cough or trouble breathing
Cardiac: Denies chest pain, diaphoresis or palpitations
ABD/GI: Reports abdominal pain, nausea, vomiting (Vomited once at 2 AM today) and diarrhea (Has had diarrhea but his stools are becoming formed); Denies bloody stools or black stools
: Denies dysuria, frequency or difficulty voiding
Musculoskeletal: Reports back pain (Upper back pain); Denies edema
Skin: Reports other (Incision healing well)
Neurological: Reports no symptoms
Phy Exam
<Paloma Enamorado, PROCESS PLANT OPERATOR - Last Filed: 12/28/24 15:34>
Physical Exam
Physical Exam:
GENERAL: No acute distress. A&Ox3.
CONSTITUTIONAL: Afebrile.
EYES: clear, conjunctivae normal
ENMT: moist mucus membranes, Pharynx nl
RESPIRATORY: Regular respirations, nonlabored, lungs clear.
CARDIOVASCULAR: Regular rate and rhythm, no murmurs, no rubs.
GI: Soft, generally tender but mostly RUQ tenderness, normal BS
MUSCULOSKELETAL: Moves with ease. Well perfused. Tender to palpate/massage the muscles of the entire upper back, massaging this area immediately reproduces his 'pain'
SKIN: Warm, dry, pink, incisions healing well no sign of infection
PSYCH: Normal mood and affect. Well kept, interactive and appropriate
NEUROLOGIC: Awake, alert and oriented. No focal neurological deficits
Course
<Paloma Enamorado, PROCESS PLANT OPERATOR - Last Filed: 12/28/24 15:34>
Orders/Labs/Results
Orders:
Orders
12/26/24 07:20
EKG [Electrocardiogram (*1)] Urgent
Reason for Study: Fatigue / Weakness
12/26/24 07:21
EKG- Treatment ONCE
12/26/24 07:49
CT Chest/abd/pelvis Angio W/wo Urgent
Comment:
Reason For Exam: triple bypass 10 d ago, now back pain, abd pain
12/26/24 08:00
0.9% Sodium Chloride 1000 ml [Nss] 1,000 ml IV 150 mls/hr
12/26/24 08:01
Complete Blood Count/With Diff Urgent
Comprehensive Metabolic Panel Urgent
Manual Differential Urgent
12/26/24 11:09
US Abdomen Complete/Upper Urgent
Comment:
Reason For Exam: RUQ pain
12/26/24 13:10
HYDROmorphone [Dilaudid] 1 mg IV NOW STA
Ondansetron Injectable [Zofran] 4 mg IV NOW STA
12/26/24 18:56
PRN Pain Medication Management As Directed
May give lesser potent ordered pain med per pt: Yes
preference::
Protocol:: Medication orders for pain may be administered in a
manner that supports deferring to patient preference
when the pt is:
- Requesting an ordered lesser potent pain medication.
Least to most potent pain medications are defined
as: acetaminophen < NSAID < tramadol < opioids
(morphine, oxycodone, hydromorphone).
- Requesting a lesser dose of the same medication IF
ORDERED.
- Requesting a less intrusive route of administration
if both routes are prescribed by the provider (PO <
IV).
12/26/24 18:57
Code Status As Directed
Resuscitation Status: Full Code
12/26/24 19:27
Blood Culture Q30M
RONY Source: Blood/Venous
Specimen Description:
Blood Culture Q30M
RONY Source: Blood/Venous
Specimen Description:
12/26/24 20:00
Piperacillin/Tazo 3.375 Gram [Zosyn] 3.375 gram in 50 ml IV Q6H
12/29/24 11:00
DC Protocol for Telemetry ONCE
Abnormal Lab Results
12/26/24
08:01
WBC 29.1 H 10^3/uL
(4.8-10.8)
RBC 3.87 L 10^6/uL
(4.70-6.10)
Hgb 12.4 L g/dL
(13.0-18.0)
Hct 35.6 L %
(39.0-52.0)
MCH 32.0 H pg
(27.0-31.0)
Plt Count 468 H 10^3/uL
(130-400)
Abs Neuts (Manual) 27.3 H 10^3/uL
(1.4-6.5)
Segmented Neutrophils 93 H %
(42-75)
Lymphocytes (Manual) 3 L %
(20-51)
Glucose 139 H mg/dl
(70-99)
12/26/24 08:01
12/26/24 08:01
Vital Signs
Initial and Last Documented VS:
Initial Vital Signs
Temp Pulse Resp BP Pulse Ox
98.7 F 80 16 112/68 97
12/26/24 07:27 12/26/24 07:27 12/26/24 07:27 12/26/24 07:27 12/26/24 07:27
Last Documented Vital Signs
Temp Pulse Resp BP Pulse Ox
98.7 F 74 26 106/61 90
12/26/24 07:27 12/27/24 02:45 12/26/24 13:24 12/27/24 02:00 12/27/24 02:45
<Ney Saldaña PA-C - Last Filed: 12/26/24 23:09>
Orders/Labs/Results
Orders:
Orders
12/26/24 07:20
EKG [Electrocardiogram (*1)] Urgent
Reason for Study: Fatigue / Weakness
12/26/24 07:21
EKG- Treatment ONCE
12/26/24 07:49
CT Chest/abd/pelvis Angio W/wo Urgent
Comment:
Reason For Exam: triple bypass 10 d ago, now back pain, abd pain
12/26/24 08:00
0.9% Sodium Chloride 1000 ml [Nss] 1,000 ml IV 150 mls/hr
12/26/24 08:01
Complete Blood Count/With Diff Urgent
Comprehensive Metabolic Panel Urgent
Manual Differential Urgent
12/26/24 11:09
US Abdomen Complete/Upper Urgent
Comment:
Reason For Exam: RUQ pain
12/26/24 13:10
HYDROmorphone [Dilaudid] 1 mg IV NOW STA
Ondansetron Injectable [Zofran] 4 mg IV NOW STA
12/26/24 18:56
PRN Pain Medication Management As Directed
May give lesser potent ordered pain med per pt: Yes
preference::
Protocol:: Medication orders for pain may be administered in a
manner that supports deferring to patient preference
when the pt is:
- Requesting an ordered lesser potent pain medication.
Least to most potent pain medications are defined
as: acetaminophen < NSAID < tramadol < opioids
(morphine, oxycodone, hydromorphone).
- Requesting a lesser dose of the same medication IF
ORDERED.
- Requesting a less intrusive route of administration
if both routes are prescribed by the provider (PO <
IV).
12/26/24 18:57
Code Status As Directed
Resuscitation Status: Full Code
12/26/24 19:27
Blood Culture Q30M
RONY Source: Blood/Venous
Specimen Description:
Blood Culture Q30M
RONY Source: Blood/Venous
Specimen Description:
12/26/24 20:00
Piperacillin/Tazo 3.375 Gram [Zosyn] 3.375 gram in 50 ml IV Q6H
12/29/24 11:00
DC Protocol for Telemetry ONCE
Abnormal Lab Results
12/26/24
08:01
WBC 29.1 H 10^3/uL
(4.8-10.8)
RBC 3.87 L 10^6/uL
(4.70-6.10)
Hgb 12.4 L g/dL
(13.0-18.0)
Hct 35.6 L %
(39.0-52.0)
MCH 32.0 H pg
(27.0-31.0)
Plt Count 468 H 10^3/uL
(130-400)
Abs Neuts (Manual) 27.3 H 10^3/uL
(1.4-6.5)
Segmented Neutrophils 93 H %
(42-75)
Lymphocytes (Manual) 3 L %
(20-51)
Glucose 139 H mg/dl
(70-99)
12/26/24 08:01
12/26/24 08:01
Vital Signs
Initial and Last Documented VS:
Initial Vital Signs
Temp Pulse Resp BP Pulse Ox
98.7 F 80 16 112/68 97
12/26/24 07:27 12/26/24 07:27 12/26/24 07:27 12/26/24 07:27 12/26/24 07:27
Last Documented Vital Signs
Temp Pulse Resp BP Pulse Ox
98.7 F 74 26 106/61 90
12/26/24 07:27 12/27/24 02:45 12/26/24 13:24 12/27/24 02:00 12/27/24 02:45
<Paloma Enamorado, PROCESS PLANT OPERATOR - Last Filed: 12/28/24 15:34>
MDM/Problems Addressed
Differential Diagnosis Includes:
occluded stent, AAA,
Acute Cholecystitis
MDM/Problems Addressed:
69 yo male 10 days post triple bypass at [facility] presents stating all was healing well, feeling well, had diarrhea when he left the hospital 5 days ago, had more formed stool 4 days ago, then no stool x 2 days, and finally large 'pasty' stool
yesterday. managing his BM's with Dolcolax and Miralax. He is here for upper back pain 'like my skin is irritated,' and lower abdominal pain. He vomited once 2 a.m today. Feels a 'little' nauseous now. Denies SOB or CP other than his usual healing
chest wall discomfort which is improving. Denies F/C.
Afebrile, NAD, VSS
10:15 a.m.
CBC: WBC 29.1 with shift
CMP normal
CT radiology results read: IMPRESSION:
1.Postoperative changes of CABG. There is a short segment opacification along the ascending thoracic aorta with abrupt termination which may represent graft occlusion. This appears to extend to a diagonal branch. The additional TONY to LAD and RCA
graft appear patent. There is no evidence of mediastinal hematoma. No aortic dissection or aneurysm.
2. Cholelithiasis with likely gallstones in the cystic duct. There is additional stranding in the right upper quadrant as well as possible mild hyperemia in the adjacent liver along the gallbladder fossa which is suspicious for cholecystitis.
Recommend ultrasound for further evaluation.
3. Small left pleural effusion with adjacent atelectasis.
Consulted Vascular, spoke with JD who recommends consulting CT surgeon.
Consulted CT surgeon Dr. Thornton who recommends consulting Cardiology
1:00 PM:
Ultrasound radiology report read: IMPRESSION:
Biliary sludge/stones without secondary findings to suggest acute cholecystitis. Further evaluation with HIDA scan may be considered.
The common bile duct is within normal limits measuring 4 mm.
Case discussed with [facility] CT surgeon, pt's surgeon Dr. Chappell who requests pt be transferred to [facility]. Family at bedside notified. Pt requests something for pain left abdomen 06/08.
3:40 p.m.
Awaiting call back from [facility] for bed availability
Just spoke with [facility]: Informed that a bed should be available later tonight
Pt states he is comfortable, good relief w pain medication
Case discussed with Vasyl MILES who will assume care from this point.
<Ney Saldaña PA-C - Last Filed: 12/26/24 23:09>
*Critical Care Note
Total Time (30-74mins, 75-104mins- exclusive of procedures): Not Applicable
<Ney Saldaña PA-C - Last Filed: 12/26/24 23:09>
Update Note
Update Note:
1824: Per loading unit operator powder charging no beds available at [facility], will admit for further evaluation and management pending transfer
UPDATE 2039: [facility] updated us with bed availability, pt will not be admitted here rather transferred, p/u 0100
ED Attending Note
<Paloma Enamoraod PROCESS PLANT OPERATOR - Last Filed: 12/28/24 15:34>
-
Portions of this chart may have been created with voice recognition software.� Occasional wrong word or��sound alike� substitutions may have occurred due to the inherent limitations of voice recognition software.
Discharge Plan
Departure
Patient Disposition: Acute Care Hospital
Date of Disposition: 12/26/24
Time of Disposition: 18:25
Admit to: IVU
Discharge Problem:
Abdominal pain, Leukocytosis
Hospital Transfer
Other hospital: P
I certify that the patient requires transfer: Yes
Discussed case with accepting physician: Ta
Reason for transfer: higher level of care
Interventions
Interventions:
*Risk Screen - Suicide Last Done: 12/26/24 07:27
*General Assessment Last Done: 12/26/24 07:27
*Neglect/Abuse Screening Last Done: 12/26/24 07:27
ED- Fall Risk Assessment Last Done: 12/26/24 07:47
*ED COVID-19 Vaccine History Last Done: 12/26/24 07:47
*Nursing Disposition Last Done: 12/27/24 03:20
FX-Lmcofv-Qdfjlmjwnj Assessment Last Done: 12/26/24 07:47
Discharge Date and Time
Discharge Date/Time: 12/27/24 03:22
[2024-12-26] MEDS: NSS 1000 IV ×2 (08:03→17:37)
[2024-12-26 08:36] LABS: ALT (SGPT) 29 U/L (0-50); AST (SGOT) 24 U/L (17-59); Albumin 3.8 g/dl (3.5-5.0); Alkaline Phosphatase 101 U/L (38-126); Blood Urea Nitrogen 18 mg/dl (9-20); Calcium 8.7 mg/dl (8.4-10.2); Carbon Dioxide 27 mmol/L (22-30); Chloride 99 mmol/L (98-107); Estimated Creatinine Clearance 76 ml/min; Glucose 139 mg/dl (70-99); Potassium 4.3 mmol/L (3.5-5.1); Sodium 136 mmol/L (135-145); Total Protein 6.4 g/dl (6.3-8.2); eGFR > 60.00
[2024-12-26 08:39] LABS: Hematocrit 35.6 % (39.0-52.0); Hemoglobin 12.4 g/dL (13.0-18.0); Mean Corp Hgb Conc. 34.8 g/dL (33.0-37.0); Mean Platelet Volume 8.5 fL (7.4-10.4); Platelet Count 468 10^3/uL (130-400); Red Blood Cell Count 3.87 10^6/uL (4.70-6.10); Red Cell Dist. Width 13.8 % (11.5-14.5); White Blood Cell Count 29.1 10^3/uL (4.8-10.8)
[2024-12-26 09:00] LABS: Absolute Neutrophils -Man Diff 27.3 10^3/uL (1.4-6.5); Band Neutrophils 1 % (0-3); Lymphocytes 3 % (20-51); Monocytes 3 % (2-9); Platelets Checked Yes; Segmented Neutrophils 93 % (42-75)
[2024-12-26 09:01] LABS: Normal RBC Morphology Yes; Total Cells Counted 100
[2024-12-26] MEDS: DILAUDID 1 MG IV (13:14)
[2024-12-26] MEDS: ZOFRAN 4 MG IV ×2 (13:14→22:45)
--- NOTE | 2024-12-26 19:03 | HPS.HSE ---
Addendum entered and electronically signed by Anna Young MD 12/26/24 19:06:
Correction- patient having chills.
Original Note:
Family Physician
-
Family Physician: Martín Schwartz
Chief Complaint
-
abdominal pain
History of Present Illness
69-year-old male past medical history of CAD status post CABG at [facility] 10 days ago, kidney stones, presenting with abdominal pain. He left the hospital 5 days ago and had diarrhea initially with more formed stool followed by no stool and then large
pasty stool since yesterday. He has been managing his bowel movements with Dulcolax and MiraLAX. He is here for upper back pain and lower abdominal pain. He had 1 episode of vomiting 2 AM today. Has nausea now. Denies chest pain or shortness of
breath.
Chest wall pain is improving. He denies fevers or chills.
He denies smoking or alcohol use.
Medical History
Past Medical History
Past Medical History: Reports Other (CAD status post CABG at [facility] 10 days ago, kidney stones,)
Past Surgical History: Reports None
Social History
Tobacco: Non-smoker
Alcohol: None
Drug: None
Family History
Family History: Not pertinent
Allergies / Home Medications
Allergies reflects when Allergies were last updated in [facility].
Home Medications with original date entered in [facility]
Allergy/Medication List:
Allergies
Allergy/AdvReac Type Severity Reaction Status Date / Time
NKA - No Known Allergies Allergy Unknown Unknown Uncoded 12/26/24 07:27
Home Medications
acetaminophen 325 mg tablet 650 mg PO Q6HPRN PRN pain 12/26/24
amiodarone 200 mg tablet 200 mg PO DAILY Arrhythmia 12/26/24
apixaban 5 mg tablet (Eliquis) 5 mg PO BID Blood Clot Prevention/Tx 12/26/24
atorvastatin 80 mg tablet 80 mg PO QPM High Cholesterol 12/26/24
famotidine 20 mg tablet 20 mg PO DAILY Gastrointestinal Issue 12/26/24
metoprolol succinate 50 mg tablet,extended release 24 hr 50 mg PO QPM Blood Pressure 12/26/24
ticagrelor 90 mg tablet (Brilinta) 90 mg PO BID Blood Clot Prevention/Tx 12/26/24
Review of Systems
-
History Source: Patient
A 12 point ROS was completed and negative except as noted: Yes
Constitutional: Reports No Symptoms
EENT: Reports No Symptoms
Respiratory: Reports No Symptoms
Cardiac: Reports No Symptoms
Abdomen/GI: Reports See HPI
: Reports No Symptoms
Musculoskeletal: Reports No Symptoms
Skin: Reports No Symptoms
Neurological: Reports No Symptoms
Endocrine: Reports No Symptoms
Hematologic/Lymphatic: Reports No Symptoms
Psych: Reports No Symptoms
Physical Exam
Vital Signs
Vital Signs
Temp Pulse Resp BP Pulse Ox
98.7 F 83 26 128/66 94
12/26/24 07:27 12/26/24 18:30 12/26/24 13:24 12/26/24 18:00 12/26/24 18:30
Physical Exam
General: Well Developed, Well Nourished and No Apparent Distress
HEENT: NormoCephalic, Moist mucous membranes and Atraumatic
Respiratory: Clear
Cardiac: S1/S2 and Regular Rhythm; No Murmur or Rub
GI: Soft, Non Tender, Non Distended, Normal Bowel Sounds and Tender (RUQ tenderness ); No Organomegaly
Rectal: Deferred by Provider
Musculoskeletal: No Clubbing, No Cyanosis and No Edema
Skin: No Rash
Neuro: Nonfocal/grossly intact
Laboratory Results
-
12/26/24 08:01
12/26/24 08:01
Laboratory Results
Total Bilirubin 1.0 mg/dl (0.2-1.3) 12/26/24 08:01
AST 24 U/L (17-59) 12/26/24 08:01
ALT 29 U/L (0-50) 12/26/24 08:01
Alkaline Phosphatase 101 U/L (38-126) 12/26/24 08:01
Data Reviewed
-
Lab Data: Labs Reviewed by me
Old Records: Reviewed
Impression/Plan
-
IMPRESSION:
PLAN:
# Upper back pain/lower abdominal pain concerning for potential cholecystitis
-CT abdomen pelvis shows cholelithiasis with likely gallstones and cystic duct, findings are suspicious
-Abdominal ultrasound shows biliary sludge/stones without findings of cholecystitis
-Unclear source of leukocytosis
-IV fluids
-Check blood cultures
-N.p.o.
-IV fluids
-Zosyn
-Dilaudid
#CAD status post CABG 10 days ago at [facility]
# Possible graft occlusion of CABG on imaging
-EKG shows normal sinus rhythm, right bundle branch block
-Continue Plavix, Brilinta, Eliquis
-Continue metoprolol
-Patient accepted for transfer at [facility] but no beds available
-Trend troponins
History of kidney stones
Hypercholesterolemia
-Continue statin
Full code
DVT prophylaxis�Eliquis
N.p.o.
[2024-12-26] MEDS: ZOSYN 50 IV (20:08)
[2024-12-26] MEDS: FLUSH (NSS) 1 FLUSH IV (20:13)
[2024-12-26] MEDS: NSS IV (22:02)
[2024-12-26] MEDS: ELIQUIS 5 MG PO (22:37)
[2024-12-26] MEDS: LIPITOR 80 MG PO (22:43)
[2024-12-26] MEDS: TOPROL XL 50 MG PO (22:44)
[2024-12-26] MEDS: BRILINTA 90 MG PO (22:44)
[2024-12-26] MEDS: DILAUDID 0.5 MG IV (22:45)
[2024-12-27] VITALS: BP 105/62
[2024-12-27 01:00] VITALS: BP 112/62
[2024-12-27] MEDS: DILAUDID 1 MG IV (01:41)
[2024-12-27 02:00] VITALS: BP 106/61
[2024-12-27] MEDS: ZOSYN 50 IV (02:28)
--- NOTE | 2024-12-27 09:37 | W.PN.UPDATE ---
Addendum entered and electronically signed by Tanner Wyman MD 12/27/24 16:08:
Dictation- [id number]
Original Note:
Update Note
Progress Note Update
I was told by ER patient already left to [facility].
== END 2024-12-27 07:00 | disposition short-term general hospital (02) | DRG 446 ==
LOC: ED 19:36
PROVIDERS: Registered Nurse; ADMITTING PHYSICIAN Hospitalist; ATTENDING PHYSICIAN Hospitalist; EMERGENCY PHYSICIAN Student in an Organized Health Care Education/Training Program; FAMILY PHYSICIAN Internal Medicine
DX: K80.20 Calculus of gallbladder without cholecystitis without obstruction (principal); I25.10 Atherosclerotic heart disease of native coronary artery without angina pectoris; Z95.1 Presence of aortocoronary bypass graft; Z79.02 Long term (current) use of antithrombotics/antiplatelets; E78.00 Pure hypercholesterolemia, unspecified
CPT/HCPCS: 71275; 74174; 76700; 80053; 85025; 87040; 93005; 96374; 96375; 99285; Q9967

== ENCOUNTER → 2025-01-23 10:56 | Outpatient (REF) | payer MEDICARE, OTHER, SELFPAY | LOC: RCS 10:56 | PROVIDERS: ATTENDING PHYSICIAN Internal Medicine Interventional Cardiology; FAMILY PHYSICIAN Internal Medicine | DX: I25.10 Atherosclerotic heart disease of native coronary artery without angina pectoris (principal); I48.0 Paroxysmal atrial fibrillation; Z95.5 Presence of coronary angioplasty implant and graft; I21.4 Non-ST elevation (NSTEMI) myocardial infarction; E78.2 Mixed hyperlipidemia | CPT/HCPCS: 93306 ==

== ENCOUNTER → 2025-02-22 08:36 | Outpatient (REF) | payer MEDICARE, OTHER, SELFPAY ==
[2025-02-22 10:15] LABS: % Basophils 0.9 % (0-2); % Eosinophils 4.2 % (0-6); % Immature Granulocytes 0.4 % (0-0.5); % Lymphocytes 25.8 % (20.5-51.1); % Monocytes 8.4 % (1.7-9.3); % Neutrophils 60.3 % (42.2-75.2); Absolute Basophils 0.1 10^3/uL (0-0.2); Absolute Eosinophils 0.3 10^3/uL (0-0.7); Absolute Lymphocytes 1.8 10^3/uL (1.2-3.4); Absolute Monocytes 0.6 10^3/uL (0.1-0.6); Absolute Neutrophils 4.2 10^3/uL (1.4-6.5); Hematocrit 43.4 % (39.0-52.0); Hemoglobin 14.1 g/dL (13.0-18.0); Mean Corp Hgb Conc. 32.5 g/dL (33.0-37.0); Mean Corpuscular Hgb 30.6 pg (27.0-31.0); Mean Corpuscular Volume 94.1 fL (80.0-94.0); Mean Platelet Volume 9.1 fL (7.4-10.4); Nucleated Red Blood Cells % 0 % (-); Platelet Count 291 10^3/uL (130-400); Red Blood Cell Count 4.61 10^6/uL (4.70-6.10); Red Cell Dist. Width 14.8 % (11.5-14.5); White Blood Cell Count 6.9 10^3/uL (4.8-10.8)
[2025-02-22 10:50] LABS: ALT (SGPT) 35 U/L (0-50); AST (SGOT) 30 U/L (17-59); Albumin 4.3 g/dl (3.5-5.0); Alkaline Phosphatase 139 U/L (38-126); Blood Urea Nitrogen 21 mg/dl (9-20); Calcium 9.6 mg/dl (8.4-10.2); Carbon Dioxide 27 mmol/L (22-30); Chloride 106 mmol/L (98-107); Glucose 100 mg/dl (70-99); HDL Cholesterol 38 mg/dl; LDL Cholesterol, Calculated 72 mg/dl; Potassium 4.7 mmol/L (3.5-5.1); Sodium 141 mmol/L (135-145); Total Bilirubin 0.6 mg/dl (0.2-1.3); Total Cholesterol 129 mg/dl (50-199); Total Protein 6.9 g/dl (6.3-8.2); Triglyceride 95 mg/dl (10-149); Very Low Density Lipoprotein 19 mg/dl (0-30); eGFR > 60.00
[2025-02-22 10:58] LABS: Glycohemoglobin (HgbA1c) 4.9 % (4.0-5.6)
== END ==
LOC: REG 08:36
PROVIDERS: ATTENDING PHYSICIAN Internal Medicine; FAMILY PHYSICIAN Internal Medicine
DX: I25.10 Atherosclerotic heart disease of native coronary artery without angina pectoris (principal); I48.0 Paroxysmal atrial fibrillation; Z95.5 Presence of coronary angioplasty implant and graft; I21.4 Non-ST elevation (NSTEMI) myocardial infarction; E78.2 Mixed hyperlipidemia
CPT/HCPCS: 36415; 80053; 80061; 83036; 85025

== ENCOUNTER → 2025-08-07 09:18 | Outpatient (REF) | payer MEDICARE, OTHER, SELFPAY ==
[2025-08-07 10:53] LABS: Hematocrit 45.6 % (39.0-52.0); Hemoglobin 15.5 g/dL (13.0-18.0); Mean Corp Hgb Conc. 34.0 g/dL (33.0-37.0); Mean Corpuscular Volume 93.3 fL (80.0-94.0); Nucleated Red Blood Cells % 0 % (-); Platelet Count 216 10^3/uL (130-400); Red Cell Dist. Width 12.8 % (11.5-14.5)
[2025-08-07 11:13] LABS: ALT (SGPT) 31 U/L (0-50); AST (SGOT) 29 U/L (17-59); Albumin 4.2 g/dl (3.5-5.0); Alkaline Phosphatase 103 U/L (38-126); Blood Urea Nitrogen 13 mg/dl (9-20); Calcium 9.3 mg/dl (8.4-10.2); Carbon Dioxide 31 mmol/L (22-30); Chloride 107 mmol/L (98-107); Glucose 95 mg/dl (70-99); HDL Cholesterol 44 mg/dl; LDL Cholesterol, Calculated 67 mg/dl; Potassium 4.5 mmol/L (3.5-5.1); Sodium 142 mmol/L (135-145); Total Protein 6.8 g/dl (6.3-8.2); Very Low Density Lipoprotein 15 mg/dl (0-30); eGFR > 60.00
[2025-08-07 11:46] LABS: Glycohemoglobin (HgbA1c) 5.3 % (4.0-5.6)
== END ==
LOC: REG 09:18
PROVIDERS: ATTENDING PHYSICIAN Internal Medicine Interventional Cardiology; FAMILY PHYSICIAN Internal Medicine
DX: I25.10 Atherosclerotic heart disease of native coronary artery without angina pectoris (principal); E78.2 Mixed hyperlipidemia; I10 Essential (primary) hypertension; R42 Dizziness and giddiness; R73.09 Other abnormal glucose
CPT/HCPCS: 36415; 80053; 80061; 83036; 84443; 85025

== ENCOUNTER → 2025-08-09 13:35 | Outpatient (REF) | payer MEDICARE, OTHER, SELFPAY | LOC: RCS 13:35 | PROVIDERS: ATTENDING PHYSICIAN Internal Medicine Interventional Cardiology; FAMILY PHYSICIAN Internal Medicine | DX: I25.10 Atherosclerotic heart disease of native coronary artery without angina pectoris (principal); E78.2 Mixed hyperlipidemia; I10 Essential (primary) hypertension; R42 Dizziness and giddiness | CPT/HCPCS: 93306 ==